=== PATIENT | male | born 1970 | race Caucasian/White ===

== ENCOUNTER 2017-08-14 07:18 | Emergency (ER) | payer OTHER ==
[2017-08-14] MEDS ORDERED: Ciprofloxacin 0.3% Ophth Soln 2.5 ML Bottle ONE (07:45)
--- NOTE | 2017-08-14 08:03 | EDM.PDOC ---
ED HPI GENERAL MEDICAL PROBLEM - General Chief Complaint: General Stated Complaint: OBJECT IN LFT EYE Time Seen by Provider: 08/14/17 07:20 Source of Information: Reports: Patient History Limitations: Reports: No Limitations - History of Present Illness INITIAL COMMENTS - FREE TEXT/NARRATIVE: According to patient he was grinding some steel 2 days ago, and was wearing protective glasses. after he was done, he wiped his face his the collar of his shirt and felt some thing fall in the left eye. Since then he has been feeling something stuck in the left eye and has not been able to get rid of it. He claims he was been dulling rubbing his eye on and off. He has tearing from his left eye. No pain in the eye. No headache or halo around the light. No nausea or vomiting. Onset Date: 08/12/17 Location: Reports: Other (left eye) Severity: Moderate Improves with: Reports: None Worsens with: Reports: None Associated Symptoms: Reports: Confusion. Denies: Fever/Chills, Headaches, Nausea/Vomiting, Rash - Related Data Allergies Allergy/AdvReac Type Severity Reaction Status Date / Time Penicillins Allergy Other Verified 08/14/17 07:31 Home Meds: Home Meds NK [No Known Home Meds] 08/14/17 [History] ED ROS GENERAL - Review of Systems Review Of Systems: See Below Constitutional: Denies: Fever, Chills HEENT: Denies: Eye Discharge, Eye Pain, Rhinitis Respiratory: Denies: Shortness of Breath, Cough, Sputum Cardiovascular: Denies: Chest Pain, Lightheadedness GI/Abdominal: Denies: Nausea, Vomiting Skin: Denies: Bruising, Pruritis, Rash Neurological: Denies: Dizziness, Headache ED EXAM, GENERAL - Physical Exam Exam: See Below Exam Limited By: No Limitations General Appearance: Alert, WD/WN, No Apparent Distress Eye Exam: Left Eye: Other (On examination of the left eye, there is a small speck of brownish superficial foreign body seen in the outer upper quadrant of the cornea, no rust ring seen around the foreign body. Pupils normally reacting to light. On fluroscein exam there is no halo around the foreign.), Bilateral Eye: EOMI, PERRL Ears: Normal External Exam, Normal Canal, Hearing Grossly Normal, Normal TMs Ear Exam: Bilateral Ear: Auricle Normal, Canal Normal, TM normal Nose: Normal Inspection, Normal Mucosa, No Blood Throat/Mouth: Normal Inspection, Normal Lips, Normal Teeth, Normal Gums, Normal Oropharynx, Normal Voice, No Airway Compromise Head: Atraumatic, Normocephalic Neck: Normal Inspection, Supple, Non-Tender, Full Range of Motion Course - Vital Signs Text/Narrative:: Pt reassured that he has a superficial metallic foreign body in the left eye cornea, not in the visual axis of the eye. I do not see a rust ring around it. Also floroscein exam was done and no corneal abrasion or collection of the dye seen around the foreign body. I did use the eye magnet as this is a metallic steel particle. The small foreign body removed successfully. I have started patient on cipro eye drops 2 drops every 2 hrs for today and advised to start every 4 hrs from tomorrow for 4 days. Wear protective dark glass is he is going to be outdoor in bright sun. If he has worsening eye pain, nausea, vomiting, blurry vision or halo around light need to be seen JAG. Departure - Departure Time of Disposition: 07:50 Disposition: Home, Self-Care 01 Condition: Fair Clinical Impression: Corneal foreign body - Discharge Information Instructions: Ciprofloxacin eye solution, Eye Foreign Body, [id number] Referrals: PCP,None [Primary Care Provider] - Forms: ED Department Discharge - Problem List & Annotations (1) Corneal foreign body SNOMED Code(s): 29554866 Code(s): T15.00XA - FOREIGN BODY IN CORNEA, UNSPECIFIED EYE, INITIAL ENCOUNTER Status: Acute Current Visit: Yes - Problem List Review Problem List Initiated/Reviewed/Updated: Yes - Assessment/Plan Assessment:: left eye corneal foreign body Plan: I did use the eye magnet as this is a metallic steel particle. The small foreign body removed successfully. I have started patient on cipro eye drops 2 drops every 2 hrs for today and advised to start every 4 hrs from tomorrow for 4 days. Wear protective dark glass is he is going to be outdoor in bright sun. If he has worsening eye pain, nausea, vomiting, blurry vision or halo around light need to be seen JAG.
== END 2017-08-14 08:00 | disposition home or self-care (01) ==
LOC: LB.ED 07:18
DX: T15.02XA Foreign body in cornea, left eye, initial encounter (principal); Z88.0 Allergy status to penicillin
CPT/HCPCS: 65220; 99283; A9270

== ENCOUNTER 2018-12-17 12:10 | Emergency (ER) | payer OTHER ==
[2018-12-17] MEDS: HYDROmorphone 2 MG/ML Syringe IVPUSH ONE (12:35)
[2018-12-17] MEDS: Sodium Chloride 0.9% 1,000 ML IV SCH (12:45)
[2018-12-17] MEDS: Midazolam 1 MG/ML 2 ML SDV IVPUSH ONE (13:02)
[2018-12-17] MEDS: fentaNYL 250 MCG/5 ML SDV IVPUSH ONE ×2 (13:04→13:06)
[2018-12-17] MEDS: HYDROmorphone 2 MG/ML Syringe ONE ×2 (13:27→14:58)
--- NOTE | 2018-12-17 14:01 | EDM.PDOC ---
ED HPI GENERAL MEDICAL PROBLEM - General Chief Complaint: General Stated Complaint: INJURED L ANKLE Time Seen by Provider: 12/17/18 12:15 Source of Information: Reports: Patient History Limitations: Reports: No Limitations - History of Present Illness INITIAL COMMENTS - FREE TEXT/NARRATIVE: Pt is 48/m with PMH of GERD, presented to emergency room by private vehicle. Apparently patient was getting off his truck at home and twisted his ankle and felt sharp pain in the ankle. Since then he has not been able to weight bear. Has deformity of the ankle. No tingling or numbness in the foot or toes. No pain in the foot. Most of his pain is over the lateral aspect of the ankle. No other injuries. Onset: Today Onset Date: 12/17/18 Onset Time: 11:15 Location: Reports: Lower Extremity, Left Quality: Reports: Ache Severity: Severe Improves with: Reports: None Worsens with: Reports: None Associated Symptoms: Denies: Confusion, Chest Pain, Cough, Diaphoresis, Fever/ Chills, Headaches, Nausea/Vomiting, Rash, Seizure, Shortness of Breath, Syncope , Weakness - Related Data Allergies Allergy/AdvReac Type Severity Reaction Status Date / Time Penicillins Allergy Other Verified 12/17/18 12:48 Home Meds: Home Meds Omeprazole 40 mg PO DAILY 12/17/18 [History] Past Medical History Gastrointestinal History: Reports: Other (See Below) Other Gastrointestinal History: hernia repair - Past Surgical History HEENT Surgical History: Reports: Tonsillectomy Social & Family History - Family History Family Medical History: Noncontributory ED ROS GENERAL - Review of Systems Review Of Systems: See Below Constitutional: Denies: Fever, Chills HEENT: Denies: Rhinitis, Throat Pain, Throat Swelling Respiratory: Denies: Shortness of Breath, Pleuritic Chest Pain, Cough, Sputum Cardiovascular: Denies: Chest Pain, Lightheadedness GI/Abdominal: Denies: Abdominal Pain, Nausea, Vomiting Musculoskeletal: Reports: Joint Pain, Joint Swelling. Denies: Shoulder Pain, Arm Pain, Back Pain, Muscle Pain, Muscle Stiffness Skin: Denies: Bruising, Pruritis, Rash Neurological: Denies: Confusion, Dizziness, Headache, Numbness, Tingling Psychiatric: Denies: Agitation, Anxiety, Confusion ED EXAM, GENERAL - Physical Exam Exam: See Below Exam Limited By: No Limitations General Appearance: Alert, WD/WN, Mild Distress Eye Exam: Bilateral Eye: EOMI, PERRL Ears: Normal External Exam, Normal Canal, Hearing Grossly Normal, Normal TMs Ear Exam: Bilateral Ear: Auricle Normal, Canal Normal, TM normal Nose: Normal Inspection, Normal Mucosa, No Blood Throat/Mouth: Normal Inspection, Normal Lips, Normal Teeth, Normal Gums, Normal Oropharynx, Normal Voice, No Airway Compromise Head: Atraumatic, Normocephalic Neck: Normal Inspection, Supple, Non-Tender, Full Range of Motion Respiratory/Chest: No Respiratory Distress, Lungs Clear, Normal Breath Sounds, No Accessory Muscle Use, Chest Non-Tender Cardiovascular: Normal Peripheral Pulses, Regular Rate, Rhythm, No Edema, No Gallop, No JVD, No Murmur, No Rub Peripheral Pulses: 2+: Carotid (L), Carotid (R), Radial (L), Radial (R) GI/Abdominal: Normal Bowel Sounds, Soft, Non-Tender, No Organomegaly, No Distention, No Abnormal Bruit, No Mass Extremities: Other (deviation of the foot with swelling of the medial apsect of the foot. there is no skin brusiing noted. Painful and limited ROM of the foot. Tender over the lateral malleolus to palpation. Normal neurovscular rexam of the foot.) Course - Vital Signs Text/Narrative:: Pt does have bimalleolar fracture of the left ankle with lateral subluxation of the mortise. As there is fracture subluxation of the ankle, did contact Dr. Ragland, [facility] othropedician dermatological surgeon. After consulting him and per his recommendation, reduction under conscious sedation was attempted, the joint did reduce very easily. Post reduction X-ray showed reduction with minimal lateral shift. While placing splint the joint did dislocate. So the joint was easily reduced again and posterior short leg splint with U splint applied around the ankle and repeat X-ray done, which does show mild lateral subluxation of the joint. X-ray transmitted to Dr. Reaves. Dr. Ragland does want patient transferred to [facility] and see it this can be better reduced, or might need surgical fixation. I have discussed this with patient and family who agrees with transfer.Have discussed patient with Dr. Choudhary the ER physician at [facility]. Who does agree with accepting patient. Pt's last meal hs been round 8Am today. HAs been kept NPO and transferred by S ambulance to [place] [facility]. Further care per Dr. Funmi Ragland. - Orders/Labs/Meds Orders: Active Orders 24 hr Category Date Time Status Ankle 2V Lt [CR] Stat Exams 12/17/18 12:27 Taken Ankle 2V Lt [CR] Stat Exams 12/17/18 13:01 Taken Meds: Medications Discontinued Medications Generic Name Dose Route Start Last Admin Trade Name Frebishnu PRN Reason Stop Dose Admin Hydromorphone HCl Confirm 12/17/18 13:33 Dilaudid Administered 12/17/18 13:34 Dose 2 mg .ROUTE .STK-MED ONE Departure - Departure Time of Disposition: 14:30 Disposition: DC/Tfer to Acute Hospital 02 Condition: Fair Clinical Impression: Ankle fracture, bimalleolar, closed - Discharge Information Forms: ED Department Discharge - Problem List & Annotations (1) Ankle fracture, bimalleolar, closed SNOMED Code(s): 27090226 Code(s): S82.843A - DISPLACED BIMALLEOLAR FRACTURE OF UNSP LOWER LEG, INIT Status: Acute Current Visit: Yes - Problem List Review Problem List Initiated/Reviewed/Updated: Yes - My Orders Last 24 Hours: My Active Orders 12/17/18 12:27 Ankle 2V Lt [CR] Stat 12/17/18 13:01 Ankle 2V Lt [CR] Stat - Assessment/Plan Last 24 Hours: My Active Orders 12/17/18 12:27 Ankle 2V Lt [CR] Stat 12/17/18 13:01 Ankle 2V Lt [CR] Stat Assessment:: Left bimalleolar ankle fracture with laterat subluxation of the talus. Plan: Pt does have bimalleolar fracture of the left ankle with lateral subluxation of the mortise. As there is fracture subluxation of the ankle, did contact Dr. Ragland, [place] [facility] othropedician dermatological surgeon. After consulting him and per his recommendation, reduction under conscious sedation was attempted, the joint did reduce very easily. Post reduction X-ray showed reduction with minimal lateral shift. While placing splint the joint did dislocate. So the joint was easily reduced again and posterior short leg splint with U splint applied around the ankle and repeat X-ray done, which does show mild lateral subluxation of the joint. X-ray transmitted to Dr. Reaves. Dr. Ragland does want patient transferred to [place] ER and see it this can be better reduced, or might need surgical fixation. I have discussed this with patient and family who agrees with transfer.Have discussed patient with Dr. Choudhary the ER physician at [facility]. Who does agree with accepting patient. Pt's last meal hs been round 8Am today. Has been kept NPO and transferred by BLS ambulance to [place] [facility] room. Further care per Dr. Choudhary nd Dr. Ragland.
[2018-12-17 14:45] VITALS: BP 129/91
--- NOTE | 2018-12-18 11:50 | CR ---
LEFT ANKLE, 12/17/18 There is a fracture subluxation of the ankle joint. There is a comminuted displaced fracture through the distal fibular metaphysis with lateral and posterior displacement of the distal fragments with respect to the proximal. The talus is subluxed laterally approximately 1 cm with respect to the distal tibia. There is also a displaced avulsion fracture from the medial malleolus of the distal tibia. There is a faint lucency of the posterior malleolus of the distal tibia which may represent a nondisplaced fracture. No other acute abnormalities. [id number] [facility]
--- NOTE | 2018-12-18 11:55 | CR ---
LEFT ANKLE, 12/17/18 Post reduction views are reviewed. The displaced comminuted fracture through the distal fibula is again seen. The fracture fragments do appear improved in alignment and position from the prior exam. The lateral subluxation of the tibia prior exam has been partially reduced. The avulsion fracture from the tip of the medial malleolus of the distal tibia remains displaced, but is improved in position and alignment with respect to the prior study. The exam is otherwise unchanged from the prior. [id number] [facility]
== END 2018-12-17 15:15 ==
LOC: LB.ED 12:10
DX: S82.842A Displaced bimalleolar fracture of left lower leg, initial encounter for closed fracture (principal); S93.02XA Subluxation of left ankle joint, initial encounter; Z88.0 Allergy status to penicillin; X50.1XXA Overexertion from prolonged static or awkward postures, initial encounter; Z79.899 Other long term (current) drug therapy
CPT/HCPCS: 27810; 73600-LT; 99152; 99283-25; A0425; A0429; J1170; J2250; J3010; J7030

== ENCOUNTER 2020-12-21 18:21 | Emergency (ER) | payer BC ==
[2020-12-21] MEDS ORDERED: Cyclobenzaprine 10 MG Tab ONE (19:00)
[2020-12-21] MEDS ORDERED: Ketorolac 10 MG Tab ONE (19:00)
--- NOTE | 2020-12-21 19:08 | EDM.PDOC ---
ED HPI GENERAL MEDICAL PROBLEM - General Chief Complaint: Back Pain or Injury Stated Complaint: back pain Time Seen by Provider: 12/21/20 19:00 Source of Information: Reports: Patient History Limitations: Reports: No Limitations - History of Present Illness INITIAL COMMENTS - FREE TEXT/NARRATIVE: patient reports lower back pain for 3 weeks. no h/o back injury or recent fall. Reports that he broke his left ankle 2 years ago and had a surgical fixation. Reports that he feels muscle spasm lower back area. Worse when he lay down for awhile or when he walks for longer distances. When pain occur after a prolonged immobility, he reports that changing positions usually help. no weakness or numbness. no tingling or incontinence. Have tried some Tylenol at home with some comfort. Onset: Gradual Duration: Week(s): (3) - Related Data Allergies Allergy/AdvReac Type Severity Reaction Status Date / Time Penicillins Allergy Other Verified 12/17/18 12:48 Home Meds: Home Meds Omeprazole 40 mg PO DAILY 12/17/18 [History] Past Medical History Gastrointestinal History: Reports: Other (See Below) Other Gastrointestinal History: hernia repair - Past Surgical History HEENT Surgical History: Reports: Tonsillectomy Social & Family History - Family History Family Medical History: No Pertinent Family History ED ROS GENERAL - Review of Systems Review Of Systems: See Below Constitutional: Reports: No Symptoms HEENT: Reports: No Symptoms Respiratory: Reports: No Symptoms Cardiovascular: Reports: No Symptoms Musculoskeletal: Reports: Back Pain. Denies: Neck Pain, Shoulder Pain Skin: Reports: No Symptoms Neurological: Reports: No Symptoms Psychiatric: Reports: No Symptoms ED EXAM,LOWER BACK PAIN/INJURY - Physical Exam Exam: See Below Exam Limited By: No Limitations General Appearance: Alert, Mild Distress Ears: Normal External Exam Respiratory/Chest: No Respiratory Distress Cardiovascular: Normal Peripheral Pulses Back Exam: Normal Inspection, Full Range of Motion, Muscle Spasm, Paraspinal Tenderness. No: CVA Tenderness (L), Decreased Range of Motion, Vertebral Tenderness Extremities: Normal Inspection, Normal Range of Motion Neurological: Alert, Normal Mood/Affect, Normal Gait, No Motor/Sensory Deficits, Oriented x 3 Skin Exam: Warm Course - Vital Signs Last Recorded V/S: Last Vital Signs Temp 36.8 C 12/21/20 18:49 Pulse 78 12/21/20 18:49 Resp 16 12/21/20 18:49 BP 119/86 12/21/20 18:49 Pulse Ox 98 12/21/20 18:49 - Orders/Labs/Meds Orders: Active Orders 24 hr Category Date Time Status Ketorolac [Toradol] Med 12/21/20 19:31 Once 60 mg IM ONETIME ONE Orphenadrine [Norflex] Med 12/21/20 19:31 Once 60 mg IM ONETIME ONE - Re-Assessments/Exams Free Text/Narrative Re-Assessment/Exam: pain was controlled with IM toradol and norflex reports feeling better Lower extremities length was checked using a meter - it showed that LLE is 1cm shorter than RLE. Departure - Departure Time of Disposition: 19:40 Disposition: Home, Self-Care 01 Condition: Good Clinical Impression: Low back pain, Spasm of muscle of lower back, Acute low back pain - Discharge Information *PRESCRIPTION DRUG MONITORING PROGRAM REVIEWED*: Not Applicable *COPY OF PRESCRIPTION DRUG MONITORING REPORT IN PATIENT PATITO: Not Applicable Forms: ED Department Discharge Sepsis Event Note (ED) - Evaluation Sepsis Screening Result: No Definite Risk - Focused Exam Vital Signs: Vital Signs Temp Pulse Resp BP Pulse Ox 12/21/20 18:49 36.8 C 78 16 119/86 98 - Problem List & Annotations (1) Acute low back pain SNOMED Code(s): 788825874 Code(s): M54.5 - LOW BACK PAIN Status: Acute Priority: Medium Qualifiers: Back pain laterality: bilateral Sciatica presence: with sciatica Sciatica laterality: bilateral sciatica Qualified Code(s): M54.42 - Lumbago with sciatica, left side; M54.41 - Lumbago with sciatica, right side (2) Spasm of muscle of lower back SNOMED Code(s): 22062274802347115 Code(s): M62.830 - MUSCLE SPASM OF BACK Status: Acute Priority: Medium - Problem List Review Problem List Initiated/Reviewed/Updated: Yes - My Orders Last 24 Hours: My Active Orders 12/21/20 19:31 Ketorolac [Toradol] 60 mg IM ONETIME ONE Orphenadrine [Norflex] 60 mg IM ONETIME ONE - Assessment/Plan Last 24 Hours: My Active Orders 12/21/20 19:31 Ketorolac [Toradol] 60 mg IM ONETIME ONE Orphenadrine [Norflex] 60 mg IM ONETIME ONE Plan: - use pain medications and muscle relaxants as prescribed - apply heating pad on the affected area - follow up with your PCP in 2-7 days - discuss if MRI is indicated - also recommend to follow up with a chiropractor - return to the ER if symptoms got worse or any concerns
[2020-12-21] MEDS: Ketorolac 60 MG/2 ML SDV IM ONE (19:33)
[2020-12-21] MEDS: Orphenadrine 60 MG/2 ML Inj IM ONE (19:34)
== END 2020-12-21 20:10 | disposition home or self-care (01) ==
LOC: LB.ED 18:21
DX: M62.830 Muscle spasm of back (principal); Z88.0 Allergy status to penicillin; Z79.899 Other long term (current) drug therapy
CPT/HCPCS: 96372; 99283; A9270; J1885; J2360